=== PATIENT | male | born 1995 | race American Indian/Alaskan Native ===

== ENCOUNTER 2018-07-18 05:24 | Emergency (ER) | payer OTHER ==
[2018-07-18 05:28] VITALS: BP 145/94
--- NOTE | 2018-07-18 05:36 | ER Report ---
History and Physical Time Seen By MD: 05:27 HPI/ROS CHIEF COMPLAINT: Cough, asthma exacerbation HISTORY OF PRESENT ILLNESS: 23-year-old, 1 pack-a-day smoker. Presents ambulatory to the ER with 1 day of shortness of breath and coughing. Patient denies fever, chills or URI symptoms. He is requesting an inhaler. Patient denies production of sputum with his cough. He denies any specific asthma triggers. REVIEW OF SYSTEMS: Respiratory: As above Cardiovascular: No chest pain, no palpitations. Gastrointestinal: No vomiting, no abdominal pain. Musculoskeletal: No back pain. Allergies: Coded Allergies: No Known Drug Allergies (Unverified , 07/18/18) Home Meds No Active Prescriptions or Reported Meds Reviewed Nurses Notes: Yes Old Medical Records Reviewed: Yes Constitutional Vital Sign - Last 24 Hours 07/18/18 05:28 Temp 98.6 Pulse 125 Resp 17 B/P (MAP) 145/94 Pulse Ox 95 O2 Delivery Room Air Physical Exam General Appearance: The patient is alert, has no immediate need for airway protection and no current signs of toxicity. Vital signs stable, afebrile, pulse ox normal, mild air hunger HEENT: Pupils equal and round no injection. TMs normal, oropharynx without redness or exudate, mucous. Membranes are moist Respiratory: Chest is non tender, gross expiratory wheezing throughout all lung fernandez, no Rales or rhonchi noted. Cardiac: regular rate and rhythm Gastrointestinal: Abdomen is soft and non tender, no masses, bowel sounds normal. Musculoskeletal: Neck: Neck is supple and non tender. No lymphadenopathy Extremities have full range of motion and are non tender. Skin: No rashes or lesions. DIFFERENTIAL DIAGNOSIS: After history and physical exam differential diagnosis was considered for shortness of breath including but not limited to pulmonary infectious process, COPD, asthma, pulmonary embolus and congestive heart failure. Medical Decision Making ED Course/Re-evaluation ED Course Patient was admitted to an examination room. H&P was done. The differential diagnoses was considered. On clinical examination. Patient has a mild asthma exacerbation. His vital signs are stable. His pulse ox is normal. Patient's r equesting an albuterol inhaler. After 2 puffs. His lungs sound improved. He is discharged home to continue 2 puffs every 6 hours as needed for asthma symptoms. Patient's advised to follow-up with primary care if unimproved in 3-5 days. Decision to Disposition Date: Jul 18, 2018 Decision to Disposition Time: 05:35 Depart Departure Latest Vital Signs Vital Signs Date Time Temp Pulse Resp B/P (MAP) Pulse Ox O2 Delivery O2 Flow Rate FiO2 07/18/18 05:28 98.6 125 17 145/94 95 Room Air Impression: Primary Impression: Asthma exacerbation Additional Impression: Smoker Condition: Improved Disposition: HOME OR SELF-CARE Referrals: NOMI MENDOZA MD New Scripts No Active Prescriptions or Reported Meds Patient Instructions: Asthma (ED) Additional Instructions: Follow-up with primary care if unimproved in 3-5 days Problem Qualifiers Primary Impression: Asthma exacerbation Asthma severity: mild Asthma persistence: intermittent Qualified Codes: J45.21 - Mild intermittent asthma with (acute) exacerbation TERRELL DE LA CRUZ DO Jul 18, 2018 05:36
[2018-07-18] MEDS ORDERED: ALBUTEROL 8 GM INHALER INH ONE (05:40)
== END 2018-07-18 05:45 | disposition home or self-care (01) ==
LOC: ER 05:32
DX: J45.21 Mild intermittent asthma with (acute) exacerbation (principal); F17.210 Nicotine dependence, cigarettes, uncomplicated
CPT/HCPCS: 94640; 99283; J3535

== ENCOUNTER 2018-11-28 23:56 | Emergency (ER) | payer OTHER ==
--- NOTE | 2018-11-29 00:04 | ER Report ---
History and Physical Time Seen By MD: 00:04 HPI/ROS CHIEF COMPLAINT: Cough, runny nose, sore throat HISTORY OF PRESENT ILLNESS: Patient is a 23-year-old male here with complaints of cough, runny nose, sore throat which started this morning. Patient reportedly was seen today at another health care facility and started on Tamiflu and Tessalon Perles. Patient came in because he reports having persistent symptoms, worsening cough when laying down. Patient is hemodynamically stable with a temperature of 103F. Patient has tolerating oral intake. REVIEW OF SYSTEMS: Constitutional: + fever, + chills. Eyes:+ Rhinorrhea ENT: + sore throat and postnasal drip. Cardiovascular: No chest pain, no palpitations. Respiratory: + cough, + shortness of breath. Gastrointestinal: No abdominal pain, no vomiting. Genitourinary: No hematuria. Musculoskeletal: No back pain. Skin: No rashes. Neurological: + headache. Allergies: Coded Allergies: No Known Drug Allergies (Unverified , 11/29/18) Home Meds No Active Prescriptions or Reported Meds Constitutional Vital Sign - Last 24 Hours 11/29/18 11/29/18 11/29/18 11/29/18 00:17 00:26 00:30 00:36 Temp 103.0 Pulse 106 96 Resp 24 B/P (MAP) 99/68 116/77 (90) 128/73 (91) Pulse Ox 94 95 O2 Delivery Room Air 11/29/18 11/29/18 11/29/18 11/29/18 00:41 00:56 01:00 01:11 Pulse 106 103 97 B/P (MAP) 113/63 (80) Pulse Ox 92 94 95 11/29/18 01:26 Pulse ??? Pulse Ox 92 Physical Exam General Appearance: The patient is alert, has no immediate need for airway protection and no signs of toxicity. Uncomfortable appearing Eyes: Pupils equal and round no pallor or injection. ENT, Mouth: Mucous membranes are moist, no exudates or significant erythema of the posterior oropharynx Respiratory: There are no retractions, lungs are clear to auscultation. Cardiovascular: Tachycardia Gastrointestinal: Abdomen is soft and non tender, no masses, bowel sounds normal. Neurological: No focal neurological findings Skin: Warm and dry, no rashes. Musculoskeletal: Neck is supple non tender. Extremities are nontender, nonswollen and have full range of motion. DIFFERENTIAL DIAGNOSIS: After history and physical exam differential diagnosis was considered for adult fever including but not limited to viral syndromes including influenza, urinary tract infection, pneumonia and sepsis. Medical Decision Making Data Points Laboratory Hematology Test 11/29/18 00:16 Influenza Virus Type A (PCR) Positive (NEGATIVE) Influenza Virus Type B (PCR) Negative (NEGATIVE) Chemistry Test 11/29/18 00:16 Influenza Virus Type A (PCR) Positive (NEGATIVE) Influenza Virus Type B (PCR) Negative (NEGATIVE) EKG/Imaging Imaging Location: [facility] - [place] Patient: Puneet Martinez : 1995 Visit/Account:[id number] Date of Sevice: 11/29/2018 CHEST PA LAT HISTORY: Cough and fever. COMPARISON: None. TECHNIQUE: PA and lateral views of the chest. FINDINGS: Pulmonary/pleura: Lungs are clear. There is no pneumothorax or pleural effusion. Cardiomediastinal: Cardiac and mediastinal silhouettes are within normal limits. Bones/soft tissues: No acute osseous abnormality. There is a slight rightward curvature of the mid thoracic spine. The visible abdomen is normal. IMPRESSION: 1. No acute cardiopulmonary process. ED Course/Re-evaluation ED Course Patient is a 23-year-old male here with complaints of fevers, chills, sore throat, postnasal drip, nonproductive cough. Patient had been started on Tamiflu and Tessalon Perles after evaluation at another health care facility. Patient was influenza a positive. Chest x-ray showed no acute consolidations. Patient was advised to continue taking Tamiflu until completion. Patient was given promethazine and codeine for treatment of cough. Return precautions provided. PCP follow-up recommended in 24-48 hours. Recommend aggressive by mouth hydration and Tylenol, ibuprofen as needed for fever control. Decision to Disposition Date: Nov 29, 2018 Decision to Disposition Time: 01:09 Depart Departure Latest Vital Signs Vital Signs Date Time Temp Pulse Resp B/P (MAP) Pulse Ox O2 Delivery O2 Flow Rate FiO2 11/29/18 01:26 ??? 92 11/29/18 01:00 113/63 (80) 11/29/18 00:17 103.0 24 Room Air Impression: Primary Impression: Influenza A Condition: Improved Disposition: HOME OR SELF-CARE New Scripts No Active Prescriptions or Reported Meds Patient Instructions: Influenza (DC) Additional Instructions: You were diagnosed with influenza a. Please continue taking your Tamiflu until complete. Your x-ray showed no signs of bacterial pneumonia. You may take [id number] cough syrup, Tessalon Perles. Please follow-up with [facility] as needed. EMMIE SHORE DO Nov 29, 2018 00:04
--- NOTE | 2018-11-29 00:52 | RADIOLOGY IMAGING REPORT ---
FACILITY: [facility] [place] PATIENT NAME: Puneet Martinez : 1995 MR: [id number] V: [id number] EXAM DATE: ORDERING PHYSICIAN: EMMIE SHORE TECHNOLOGIST: Location: [facility] [place] Patient: Puneet Martinez : 1995 Visit/Account:[id number] Date of Sevice: 11/29/2018 CHEST PA LAT HISTORY: Cough and fever. COMPARISON: None. TECHNIQUE: PA and lateral views of the chest. FINDINGS: Pulmonary/pleura: Lungs are clear. There is no pneumothorax or pleural effusion. Cardiomediastinal: Cardiac and mediastinal silhouettes are within normal limits. Bones/soft tissues: No acute osseous abnormality. There is a slight rightward curvature of the mid th oracic spine. The visible abdomen is normal. IMPRESSION: 1. No acute cardiopulmonary process. Report Dictated By: Ronna Palma at 11/29/2018 12:46 AM Report E-Signed By: Ronna Palma at 11/29/2018 12:48 AM WSN:[id number]
[2018-11-29 01:00] VITALS: BP 113/63
[2018-11-29] MEDS ORDERED: PROMETH/COD SYRP 6.25-10MG/5ML PO ONE (01:10)
== END 2018-11-29 01:35 | disposition home or self-care (01) ==
LOC: ER 11-29 00:36
DX: J10.1 Influenza due to other identified influenza virus with other respiratory manifestations (principal)
CPT/HCPCS: 71046; 87502; 99283